=== PATIENT | male | born 1990 | race Native Hawaiian/Other Pacific Islander ===

== ENCOUNTER 2022-09-05 08:45 | Emergency (ER) | payer OTHER ==
[~2022-09-05] VITALS: Ht 175.3 cm; Wt 108.9 kg
[2022-09-05 09:21] LABS: PLATELET COUNT 418 K/uL (142-355)
[2022-09-05 09:30] VITALS: TEMP 98.4
[2022-09-05 09:53] LABS: POTASSIUM 3.2 mmol/L (3.6-5.2)
[2022-09-05 10:30] VITALS: BP 121/57
== END 2022-09-05 11:30 | disposition home or self-care (01) ==
LOC: ED 08:45
PROVIDERS: Family Medicine
DX: S62.515A Nondisplaced fracture of proximal phalanx of left thumb, initial encounter for closed fracture (principal); S67.22XA Crushing injury of left hand, initial encounter; S67.21XA Crushing injury of right hand, initial encounter; S60.512A Abrasion of left hand, initial encounter; S60.511A Abrasion of right hand, initial encounter; S60.312A Abrasion of left thumb, initial encounter; S60.411A Abrasion of left index finger, initial encounter; W37.8XXA Explosion and rupture of other pressurized tire, pipe or hose, initial encounter; Y92.89 Other specified places as the place of occurrence of the external cause
CPT/HCPCS: 36415; 80053; 80307; 85027; 96360; 96374; 96375; 99284; J2270; J2550; J7040

== ENCOUNTER 2022-09-07 20:33 | Emergency (ER) | payer OTHER ==
[~2022-09-07] VITALS: Ht 175.3 cm; Wt 108.9 kg
[2022-09-07 21:40] VITALS: BP 129/79; TEMP 98.4
== END 2022-09-07 21:40 | disposition home or self-care (01) ==
LOC: ED 20:33
DX: S67.02XD Crushing injury of left thumb, subsequent encounter (principal); X58.XXXD Exposure to other specified factors, subsequent encounter; Y92.89 Other specified places as the place of occurrence of the external cause
CPT/HCPCS: 96372; 99282; J1100; J1885

== ENCOUNTER 2023-02-12 22:10 | Emergency (ER) | payer OTHER ==
[~2023-02-12] VITALS: Ht 175.3 cm; Wt 111.1 kg
[2023-02-12 22:15] VITALS: TEMP 97.2
[2023-02-12 23:11] LABS: PLATELET COUNT 263 K/uL (142-355)
[2023-02-13 00:06] VITALS: BP 129/88
== END 2023-02-13 00:06 | disposition home or self-care (01) ==
LOC: ED 22:10
PROVIDERS: Emergency Medicine
DX: R55 Syncope and collapse (principal); R42 Dizziness and giddiness; E87.6 Hypokalemia; R05.9 Cough, unspecified; R06.02 Shortness of breath
CPT/HCPCS: 36415; 80053; 80307; 81002; 82550; 84484; 85027; 87635; 93005; 99283; U0003

== ENCOUNTER 2023-02-28 20:13 | Emergency (ER) | payer OTHER ==
[~2023-02-28] VITALS: Ht 175.3 cm; Wt 108.9 kg
[2023-02-28 20:20] VITALS: BP 127/73; TEMP 98.8
== END 2023-02-28 20:54 | disposition home or self-care (01) ==
LOC: ED 20:13
DX: H10.022 Other mucopurulent conjunctivitis, left eye (principal)
CPT/HCPCS: 99282